=== PATIENT | male | born 2005 | race Caucasian/White ===

== ENCOUNTER 2023-11-21 07:07 | Emergency (ER) | payer OTHER, SELFPAY ==
[2023-11-21 07:09] VITALS: BP 133/86
--- NOTE | 2023-11-21 08:01 | ED.GENMED ---
History of Present Illness
General
Chief Complaint: Fainting/Passed Out
Source: patient
Exam Limitations: none
Time Seen by Provider: 11/21/23 07:36
Travel History
Have you had any contact with someone who has COVID-19?: No
Do you have any symptoms of coronavirus? Fever > 100 degrees, chills, cough, shortness of breath, sore throat, loss of taste or smell, muscle aches, or headache?: No
History of Present Illness
History of Present Illness:
18-year-old male presents after what sounds like syncopal episode. He woke up nauseous with abdominal pain felt like he had to go to the bathroom walked to the bathroom and passed out. He did not bite his tongue. There is no incontinence. He
remembers being woken up by his father. There was no preceding chest pain or palpitations. He states currently he feels okay. No nausea or vomiting currently. No travel. No other complaints at this time
Phy Exam
Physical Exam
Physical Exam:
General: Well-appearing male no acute respiratory distress
HEENT normocephalic atraumatic neck is supple
Heart: Regular rate and rhythm no murmurs
Lungs: Clear to auscultation bilaterally no wheezing
Abdomen: Soft nontender nondistended no guarding or rebound normal bowel sounds
Extremities: No cyanosis or edema
Skin: Warm no rash
Course
Orders/Labs/Results
Orders:
Orders
11/21/23 07:12
EKG [Electrocardiogram (*1)] Urgent
Reason for Study: Syncope
EKG- Treatment ONCE
11/21/23 08:00
Cardiac Monitoring- Treatment ONCE
0.9% Sodium Chloride 1000 ml [Nss] 1,000 ml IV BOLUS
11/21/23 08:51
Complete Blood Count/With Diff Urgent
Comprehensive Metabolic Panel Urgent
Abnormal Lab Results
11/21/23
08:51
Absolute Monos (auto) 0.7 H 10^3/uL
(0.1-0.6)
Monocytes % 9.6 H %
(1.7-9.3)
11/21/23 08:51
11/21/23 08:51
Vital Signs
Initial and Last Documented VS:
Initial Vital Signs
Temp Pulse Resp BP Pulse Ox
98.2 F 82 16 133/86 98
11/21/23 07:09 11/21/23 07:09 11/21/23 07:09 11/21/23 07:09 11/21/23 07:09
Last Documented Vital Signs
Temp Pulse Resp BP Pulse Ox
98.2 F 62 17 120/55 100
11/21/23 07:09 11/21/23 09:45 11/21/23 09:45 11/21/23 09:00 11/21/23 09:45
MDM/Problems Addressed
Differential Diagnosis Includes:
Syncope. Unlikely seizure. Considered vasovagal event but will check for arrhythmia anemia or electrolyte abnormality
lunchroom monitor labs pending and fluids ordered EKG does show sinus rhythm
*Critical Care Note
Total Time (30-74mins, 75-104mins- exclusive of procedures): Not Applicable
Update Note
Update Note:
Labs reviewed without significant finding. No arrhythmias noted on monitor. No anemia. No electrolyte abnormality. Patient was hydrated. Suspect vasovagal episode. Stable for discharge
ED Attending Note
-
Portions of this chart may have been created with voice recognition software.� Occasional wrong word or��sound alike� substitutions may have occurred due to the inherent limitations of voice recognition software.
Discharge Plan
Departure
Patient Disposition: Home (Routine Discharge)
Date of Disposition: 11/21/23
Time of Disposition: 10:09
Patient with high blood pressure during this ER visit?: No
Discharge Problem:
Syncope
Instructions: Syncope (Fainting) (DC)
Prescriptions:
No Action
No Current Medications
0
Referrals:
Sudeep Serra MD [Family Provider] -
Activity Restrictions/Additional Instructions:
Stay hydrated. Return for worsening symptoms otherwise follow-up with family doctor
Interventions
Interventions:
*Risk Screen - Suicide Last Done: 11/21/23 07:09
*General Assessment Last Done: 11/21/23 07:09
*Neglect/Abuse Screening Last Done: 11/21/23 07:09
ED- Fall Risk Assessment Last Done: 11/21/23 09:07
*ED COVID-19 Vaccine History Last Done: 11/21/23 09:10
ED- Cardiac Assessment Last Done: 11/21/23 09:07
ED- Neurological Assessment Last Done: 11/21/23 09:07
[2023-11-21 08:56] VITALS: BP 112/62
[2023-11-21 08:57] LABS: % Basophils 0.6 % (0-2); % Eosinophils 1.6 % (0-6); % Immature Granulocytes 0.3 % (0-0.5); % Lymphocytes 25.6 % (20.5-51.1); % Monocytes 9.6 % (1.7-9.3); % Neutrophils 62.3 % (42.2-75.2); Absolute Eosinophils 0.1 10^3/uL (0-0.7); Absolute Lymphocytes 1.7 10^3/uL (1.2-3.4); Absolute Monocytes 0.7 10^3/uL (0.1-0.6); Absolute Neutrophils 4.2 10^3/uL (1.4-6.5); Hematocrit 42.4 % (39.0-52.0); Hemoglobin 15.5 g/dL (13.0-18.0); Mean Corp Hgb Conc. 36.6 g/dL (33.0-37.0); Mean Corpuscular Hgb 30.5 pg (27.0-31.0); Mean Corpuscular Volume 83.5 fL (80.0-94.0); Mean Platelet Volume 8.6 fL (7.4-10.4); Nucleated Red Blood Cells % 0 % (-); Platelet Count 249 10^3/uL (130-400); Red Blood Cell Count 5.08 10^6/uL (4.70-6.10); Red Cell Dist. Width 12.6 % (11.5-14.5); White Blood Cell Count 6.8 10^3/uL (4.8-10.8)
[2023-11-21] MEDS: NSS 1000 IV (08:58)
[2023-11-21 09:00] VITALS: BP 120/55; BMI 17.9
[2023-11-21 09:08] LABS: ALT (SGPT) 34 U/L (0-50); AST (SGOT) 36 U/L (17-59); Albumin 4.6 g/dl (3.5-5.0); Alkaline Phosphatase 117 U/L (38-126); Blood Urea Nitrogen 12 mg/dl (9-20); Calcium 9.2 mg/dl (8.4-10.2); Carbon Dioxide 25 mmol/L (22-30); Chloride 103 mmol/L (98-107); Estimated Creatinine Clearance > 125 ml/min; Glucose 99 mg/dl (70-99); Potassium 4.1 mmol/L (3.5-5.1); Sodium 135 mmol/L (135-145); Total Protein 7.3 g/dl (6.3-8.2); eGFR > 60.00
--- NOTE | 2023-11-21 09:56 | EDRN ---
BiPAP off (was 16/5, rate 12 at 5lpm. Pt placed on oxygen at 5lpm at this time. spouse in room w/ pt.
[2023-11-21 10:24] VITALS: BP 124/63
== END 2023-11-21 10:31 | disposition home or self-care (01) ==
LOC: EMR 07:07
PROVIDERS: Physician Assistant; EMERGENCY PHYSICIAN Emergency Medicine; FAMILY PHYSICIAN Pediatrics
DX: R55 Syncope and collapse (principal)
CPT/HCPCS: 99284; 96360; 80053; 85025; 93005